=== PATIENT | female | born 1980 | race Caucasian/White ===

== ENCOUNTER 2020-01-16 08:19 | Emergency (ER) | payer OTHER, SELFPAY ==
[2020-01-16 08:25] VITALS: BP 153/95; PULSE 108; RESP 18; TEMP 36.7; O2SAT 98; BMI 21.9
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
--- NOTE | 2020-01-16 08:44 | PC.NURSE ---
pt in ct
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
[2020-01-16 09:32] VITALS: BP 118/82; PULSE 91; RESP 20; TEMP 36.8; O2SAT 98
== END 2020-01-16 09:35 | disposition home or self-care (01) ==
PROVIDERS: Emergency Provider Emergency Medicine; PCP Family Medicine
DX: S06.0X9A Concussion with loss of consciousness of unspecified duration, initial encounter (principal); Y04.0XXA Assault by unarmed brawl or fight, initial encounter
CPT/HCPCS: 70450; 99281; 99282